=== PATIENT | female | born 1960 | race Caucasian/White ===

== ENCOUNTER 2022-04-21 10:31 | Outpatient (CLI) | payer BC, SELFPAY ==
[2022-04-21 17:38] LABS: Basophils Absolute Auto 0.1 K/mm3 (0.0-0.1); Basophils Percent Auto 0.9 % (0.2-1.2); Eosinophils Absolute Auto 0.1 K/mm3 (0-0.3); Eosinophils Percent Auto 0.7 % (0-4.4); Hematocrit 41.9 % (37.0-47.0); Hemoglobin 13.3 g/dL (12.0-15.0); Immature Granulocyte Absolute 0.01 K/mm3 (0.00-0.031); Immature Granulocyte Percent A 0.1 % (0-0.5); Lymphocytes Absolute Auto 1.49 K/mm3 (0.9-3.2); Lymphocytes Percent Auto 19.4 % (18.3-44.2); Mean Corpuscular HGB Conc 31.7 g/dl (32-36); Mean Corpuscular Hemoglobin 31.9 pg (26-34); Mean Corpuscular Volume 100.5 fl (80-100); Mean Platelet Volume 9.5 fl (7.4-10.4); Monocytes Absolute Auto 0.7 K/mm3 (0.1-0.6); Monocytes Percent Auto 8.5 % (2.6-8.5); Neutrophils Absolute Auto 5.4 K/mm3 (1.3-6.7); Neutrophils Percent Auto 70.4 % (45.5-73.1); Platelet Count Result 346 k/mm3 (150-375); Red Blood Count 4.17 M/mm3 (4.2-5.4); Red Cell Distribution Width 12.3 % (11.5-14.5); White Blood Count 7.7 K/mm3 (4.5-10.0)
[2022-04-21 19:03] LABS: Alanine Aminotransferase 31 U/L (6-35); Albumin Level 4.4 g/dL (3.5-5.1); Alkaline Phosphatase 80 U/L (38-126); Anion Gap 5 mmol/L (8-16); Aspartate Amino Transferase 43 U/L (14-36); Bilirubin,Total 0.4 mg/dL (0.2-1.3); Blood Urea Nitrogen 11 mg/dL (7-17); Calcium 8.7 mg/dL (8.4-10.2); Carbon Dioxide 31 mmol/L (22-30); Chloride 98 mmol/L (98-107); Cholesterol 227 mg/dL (0-200); Estimated Glomerular Filt Rate > 60; Glucose 86 mg/dL (65-110); HDL Direct 56 mg/dL; Potassium 4.5 mmol/L (3.4-5.0); Sodium 134 mmol/L (137-145); Triglycerides 105 mg/dL (<150)
[2022-04-21 19:14] LABS: LDL Cholesterol Direct 127 mg/dL
[2022-04-21 21:23] LABS: Hepatitis C Virus Antibody Negative (Negative)
== END 2022-04-21 10:32 | disposition home or self-care (01) ==
LOC: ANHGOSHLAB 10:34
PROVIDERS: PCP Family Medicine; Visit Provider Family Medicine
DX: Z12.11 Encounter for screening for malignant neoplasm of colon (principal); Z11.59 Encounter for screening for other viral diseases
CPT/HCPCS: 36415; 80053; 80061; 82607; 85025; 86803

== ENCOUNTER 2022-06-19 08:06 | Outpatient (CLI) | payer BC, SELFPAY ==
--- NOTE | ~2022-06-19 | MM_ITS ---
EXAMINATION: MM screening tasneem BI w nena HISTORY: Screening mammogram TECHNIQUE: Craniocaudal and mediolateral oblique 3-D tomosynthesis images were obtained and synthetic 2-D images were generated. CAD analysis was submitted and interpreted. COMPARISON: No prior mammogram is available for comparison at this institution. BREAST PARENCHYMAL COMPOSITION: There are scattered areas of fibroglandular density. FINDINGS: RIGHT BREAST: A mass is present in the posterior third of the central breast 8 cm from the nipple. LEFT BREAST: No suspicious mass, calcification, or architectural distortion are identified to suggest malignancy. IMPRESSION: 1. Right breast mass. 2. Additional mammographic views and possible breast ultrasound are recommended. BI-RADS Category 0: Incomplete: Needs additional imaging evaluation. Reviewed, dictated and finalized at location A. RD PRESS OPERATOR IMPRESSION: 1. Right breast mass. 2. Additional mammographic views and possible breast ultrasound are recommended . BI-RADS Category 0: Incomplete: Needs additional imaging evaluation.
== END 2022-06-19 08:07 | disposition home or self-care (01) ==
PROVIDERS: PCP Family Medicine; Visit Provider Family Medicine
DX: Z12.31 Encounter for screening mammogram for malignant neoplasm of breast (principal); R92.8 Other abnormal and inconclusive findings on diagnostic imaging of breast
CPT/HCPCS: 77063; 77067

== ENCOUNTER 2022-07-04 13:24 | Outpatient (CLI) | payer BC, SELFPAY ==
--- NOTE | ~2022-07-04 | MMUS_ITS ---
EXAMINATION: MM diagnostic tasneem RT w nena, US breast RT limited HISTORY: Follow-up right breast mass TECHNIQUE: Additional 3-D tomosynthesis images of the right breast were performed and synthetic 2-D i mages were generated. CAD analysis was submitted and interpreted. High resolution Limited right breas t ultrasound was performed. COMPARISON: 06/19/2022 BREAST PARENCHYMAL COMPOSITION: Breast composed of scattered areas of fibroglandular density FINDINGS: MAMMOGRAPHIC FINDINGS: There is a persistent mass in the upper central aspect of the right breast which is partially obscure d by fibroglandular tissue. No suspicious calcifications or architectural distortion. ULTRASOUND: Limited right breast ultrasound: At 12:00, 3 cm from the nipple, there is a 3 mm cyst which likely co rresponds to the mammographic finding. No suspicious masses to suggest malignancy. IMPRESSION: 1. Right breast cyst at 12:00, 3 cm from the nipple, likely corresponds to mammographic abnormality. 2. Recommend 6 month follow-up diagnostic right mammogram and ultrasound BI-RADS category 3, probably benign findings. Reviewed, dictated and finalized at location A. IMPRESSION: 1. Right breast cyst at 12:00, 3 cm from the nipple, likely corresponds to mamm ographic abnormality. 2. Recommend 6 month follow-up diagnostic right mammogram and ultrasound BI-RADS category 3, probably benign findings.
== END 2022-07-04 13:25 | disposition home or self-care (01) ==
PROVIDERS: PCP Family Medicine; Visit Provider Family Medicine
DX: R92.8 Other abnormal and inconclusive findings on diagnostic imaging of breast (principal)
CPT/HCPCS: 76642; 77061; 77065; G0279

== ENCOUNTER 2024-03-24 09:12 | Emergency (ER) | payer BC, SELFPAY ==
--- NOTE | 2024-03-24 09:30 | ED_ITS ---
HPI - Anxiety General Chief Complaint: Recheck/Abnormal Lab/Rx <Ruddy Santana PA-C - Last Filed: 03/24/24 17:20> Stated Complaint: med refill, anxiety attack <Ruddy Santana PA-C - Last Filed: 03/24/24 17:20> Time Seen by Provider: 03/24/24 09:13 <Ruddy Santana PA-C - Last Filed: 03/24/24 17:20> Source: patient <Ruddy Santana PA-C - Last Filed: 03/24/24 17:20> Mode of arrival: ambulatory <Ruddy Santana PA-C - Last Filed: 03/24/24 17:20> Limitations: no limitations <Ruddy Santana PA-C - Last Filed: 03/24/24 17:20> History of Present Illness HPI narrative: This is a 63-year-old female who presents to the ED for chief complaint of anxiety. Reports that she has been out of her Lexapro for the past 2 weeks due to changing insurances and being in between PCP. Patient reports that this medication is very helpful to her and controlling her anxiety. Lately she has been feeling very much out of control, anxious and worried. Denies SI, HI, other medical complaints. <Ruddy Santana PA-C - Last Filed: 03/24/24 17:20> Related Data Allergies/Adverse Reactions: Allergies Allergy/AdvReac Type Severity Reaction Status Date / Time No Known Allergies Allergy Verified 04/15/22 12:52 <Ruddy Santana PA-C - Last Filed: 03/24/24 17:20> Review of Systems Review of Systems: All systems as dictated in HPI <Ruddy Santana PA-C - Last Filed: 03/24/24 17:20> [facility] Past Medical History Medical History: Medical History (Updated 03/24/24 @ 09:37 by Ruddy Santana PA-C) Current cannabis vaping on some days Cholecystectomy planned <Ruddy Santana PA-C - Last Filed: 03/24/24 17:20> Family History Family History: Family History Other Acute myocardial infarction Family history of cardiovascular disease Hypertension <Ruddy Santana PA-C - Last Filed: 03/24/24 17:20> Social History Social History: Social History (Updated 04/15/22 @ 12:57 by Muna DE LEON, HALEY) Smoking packs per day: 1 Smoking cigarettes per day: 20.0 Years smoked: 32 Smoking pack-years: 32.00 Smoking status: Current every day smoker Tobacco type: cigarettes Alcohol intake: current Lack of Transportation: No Lack of Food: Never True Current Housing: I Have Housing Concerned About Future Housing: No Difficulty Paying Gas/Electric Bills: No Difficulty Paying for Meds: No Currently Unemployed: No Education: Decline to Answer Difficulty w/ Childcare or Family Care: No <Ruddy Santana PA-C - Last Filed: 03/24/24 17:20> Exam Narrative: GENERAL: Anxious appearing. Otherwise does not appear ill HEAD: Normocephalic, atraumatic. EYES: PERRLA and EOMI. ENT: Nares clear, no rhinorrhea or epistaxis. Mucous membranes moist. Oropha rynx without tonsillar hypertrophy exudate or other lesions. NECK: Supple. No adenopathy or masses. CHEST: No respiratory distress. Clear to auscultation. No wheezes rales or rhonchi HEART: Regular rate and rhythm. No murmur heard. Normal peripheral pulses. ABDOMEN: Soft, nontender, nondistended, normal active bowel sounds. MSK: Normal range of motion. No edema. SKIN: Warm, dry, no rash. NEURO: Alert and oriented x4. No focal deficits. PSYCH: Anxious mood. Tearful affect. No SI or HI. <Ruddy Santana PA-C - Last Filed: 03/24/24 17:20> Course COMPUTER ART INSTRUCTOR/PA Physician Supervision I agree with midlevel documentation; I performed the medical decision making component of this evaluation. <Marguerite Perez MD - Last Filed: 03/24/24 18:13> Vital Signs Vital signs: Vital Signs Temperature 97.9 F 03/24/24 09:40 Pulse Rate 70 03/24/24 09:40 Respiratory Rate 16 03/24/24 09:40 Blood Pressure 161/89 H 03/24/24 09:40 Pulse Oximetry 97 03/24/24 09:40 Oxygen Delivery Room Air 03/24/24 09:40 Temperature 97.9 F 03/24/24 09:40 Pulse Rate 70 03/24/24 09:40 Respiratory Rate 16 03/24/24 09:40 Blood Pressure 161/89 H 03/24/24 09:40 Pulse Oximetry 97 03/24/24 09:40 Oxygen Delivery Room Air 03/24/24 09:40 <Ruddy Santana PA-C - Last Filed: 03/24/24 17:20> Vital Signs Temperature 97.9 F 03/24/24 09:40 Pulse Rate 70 03/24/24 09:40 Respiratory Rate 16 03/24/24 09:40 Blood Pressure 161/89 H 03/24/24 09:40 Pulse Oximetry 97 03/24/24 09:40 Oxygen Delivery Room Air 03/24/24 09:40 Temperature 97.9 F 03/24/24 09:40 Pulse Rate 70 03/24/24 09:40 Respiratory Rate 16 03/24/24 09:40 Blood Pressure 161/89 H 03/24/24 09:40 Pulse Oximetry 97 03/24/24 09:40 Oxygen Delivery Room Air 03/24/24 09:40 <Marguerite Perez MD - Last Filed: 03/24/24 18:13> MDM - Anxiety MDM Narrative Medical decision making narrative: This is a 63-year-old female who presents to the ED for medication refill for anxiety. She takes Lexapro. No SI or HI.. Vitals show elevated blood pressure but otherwise normal. No need for further workup today. Patient was given a dose of her Lexapro today. Will start on a taper up from 20 to 40 mg over the next week. Rx for Lexapro given Patient will be discharged in stable condition. Supportive measures discussed and return precautions given. Patient is understanding and agreeable with plan for discharge with PCP follow-up. <Ruddy Santana PA-C - Last Filed: 03/24/24 17:20> Discharge Plan Discharge Clinical Impression: Anxiety <Ruddy Santana PA-C - Last Filed: 03/24/24 17:20> Patient Disposition: Home, Self-Care <Ruddy Santana PA-C - Last Filed: 03/24/24 17:20> Condition: Stable <Ruddy Santana PA-C - Last Filed: 03/24/24 17:20> Instructions: Antibiotic Form, Anxiety (ED) <Ruddy Santana PA-C - Last Filed: 03/24/24 17:20> Additional Instructions: If you have any new or worsening symptoms please return to the ER for further evaluation. <Ruddy Santana PA-C - Last Filed: 03/24/24 17:20> Patient Language: Yemeni <Ruddy Santana PA-C - Last Filed: 03/24/24 17:20> Prescriptions: New escitalopram oxalate [Lexapro] 20 mg tablet 40 mg PO DAILY 30 Days Qty: 60 0RF No Action mupirocin 2 % ointment 1 applic TOPICAL BID Qty: 22 0RF escitalopram oxalate 20 mg tablet 40 mg PO DAILY Qty: 60 0RF <Ruddy Santana PA-C - Last Filed: 03/24/24 17:20> Follow-up/Referrals: UNKNOWN,DOCTOR [Primary Care Provider] - <Ruddy Santana PA-C - Last Filed: 03/24/24 17:20> Time of Disposition: 09:38 <Ruddy Santana PA-C - Last Filed: 03/24/24 17:20> 09:38 <Marguerite Perez MD - Last Filed: 03/24/24 18:13>
[2024-03-24 09:40] VITALS: BP 161/89; PULSE 70; RESP 16; TEMP 36.6; O2SAT 97
[2024-03-24] MEDS: ESCITALOPRAM OXALATE 10 MG TABLET 40 MG PO (09:53)
== END 2024-03-24 10:05 | disposition home or self-care (01) ==
PROVIDERS: Emergency Provider Physician Assistant
DX: F41.9 Anxiety disorder, unspecified (principal); Z76.0 Encounter for issue of repeat prescription; F17.210 Nicotine dependence, cigarettes, uncomplicated
CPT/HCPCS: 99283; A9270

== ENCOUNTER 2024-04-21 14:05 | Emergency (ER) | payer BC, SELFPAY ==
[2024-04-21 14:25] VITALS: BP 121/81; PULSE 74; RESP 16; TEMP 36.1; O2SAT 95
--- NOTE | 2024-04-21 14:46 | ED.GENADULT ---
HPI - General Adult General Chief complaint: Unspecified Stated complaint: Needs to be seen for prescription Source: patient, RN notes reviewed and old records reviewed Mode of arrival: ambulatory Limitations: no limitations History of Present Illness HPI narrative: Patient presents without any complaints. Her primary care provider no longer accepts her insurance, she is in need of a refill on 1 of her medications Related Data Allergies Allergy/AdvReac Type Severity Reaction Status Date / Time No Known Allergies Allergy Verified 04/21/24 14:36 Review of Systems Review of Systems: All systems reviewed & are unremarkable except as noted in HPI and below Constitutional: Constitutional: Reports no additional constitutional complaints ENT: Reports system reviewed and no additional complaints, except as documented Cardiovascular: Cardiovascular: Reports no additional cardiovascular complaints Respiratory: Respiratory: Reports no additional respiratory complaints Gastrointestinal: Gastrointestinal: Reports no additional gastrointestinal complaints [facility] Past Medical History Medical History Current cannabis vaping on some days Cholecystectomy planned Family History Family History Other Acute myocardial infarction Family history of cardiovascular disease Hypertension Social History Social History Smoking packs per day: 1 Smoking cigarettes per day: 20.0 Years smoked: 32 Smoking pack-years: 32.00 Smoking status: Current every day smoker Tobacco type: cigarettes Alcohol intake: current Lack of Transportation: No Lack of Food: Never True Current Housing: I Have Housing Concerned About Future Housing: No Difficulty Paying Gas/Electric Bills: No Difficulty Paying for Meds: No Currently Unemployed: No Education: Decline to Answer Difficulty w/ Childcare or Family Care: No Comments At the time of my signature, I reviewed and agree with the nursing past medical, surgical, social, and family history. There is no relevant family history pertinent to the patient complaint. Exam Const: General: cooperative, no acute distress, alert and awake Orientation/consciousness: oriented to person, oriented to place and oriented to time HENMT: Head: normal to inspection Resp: Effort & Inspection: normal respiratory effort and able to speak in complete sentences Auscultation: clear to auscultation bilaterally, no crackles, no rales, no rhonchi and no wheezes Cardio: Palpation: normal PMI Rate: regular rate Rhythm: regular rhythm Heart sounds: S1 normal heart sound present and S2 normal heart sound present Neuro: General: oriented to person, oriented to place and oriented to time Cranial nerves: Yes CN's II-XII intact bilaterally Psych: Appearance: grossly normal Thought process: Normal thought process present Insight: Good insight present (Psych) Judgement: Good judgement present (Psych) Course Course Level of Care: Express Care Visit Vital Signs Vital signs: Vital Signs Temperature 97 F L 04/21/24 14:25 Pulse Rate 74 04/21/24 14:25 Respiratory Rate 16 04/21/24 14:25 Blood Pressure 121/81 04/21/24 14:25 Pulse Oximetry 95 04/21/24 14:25 Temperature 97 F L 04/21/24 14:25 Pulse Rate 74 04/21/24 14:25 Respiratory Rate 16 04/21/24 14:25 Blood Pressure 121/81 04/21/24 14:25 Pulse Oximetry 95 04/21/24 14:25 Reviewed Medical Decision Making MDM Narrative Medical decision making narrative: Discharge instructions reviewed with patient, as well as provided in writing per nursing staff. The instructions also include specific and strict return/GO TO THE ER as well as f/u information. All questions have been answered, and the patient deny any further questions with discharge and discharge plan. Some parts of this dictation were generated by voice recognition software and may contain typographical and/or grammatical inaccuracies. Vital Signs Vital Signs: Vital Signs Temperature 97 F L 04/21/24 14:25 Pulse Rate 74 04/21/24 14:25 Respiratory Rate 16 04/21/24 14:25 Blood Pressure 121/81 04/21/24 14:25 Pulse Oximetry 95 04/21/24 14:25 Temperature 97 F L 04/21/24 14:25 Pulse Rate 74 04/21/24 14:25 Respiratory Rate 16 04/21/24 14:25 Blood Pressure 121/81 04/21/24 14:25 Pulse Oximetry 95 04/21/24 14:25 reviewed Lab Data Lab results reviewed: Yes I reviewed the patient's lab results. Lab results narrative: reviewed Discharge Plan Discharge Clinical Impression: Anxiety Patient Disposition: Home, Self-Care Condition: Stable Instructions: Antibiotic Form, Anxiety (ED) Additional Instructions: take medications as prescribed. Follow with primary care provider. Emergency department for new or worse symptoms Patient Language: Divehi Prescriptions: New escitalopram oxalate 20 mg tablet 40 mg PO DAILY Qty: 60 0RF No Action escitalopram oxalate [Lexapro] 20 mg tablet 40 mg PO DAILY 30 Days Qty: 60 0RF escitalopram oxalate 20 mg tablet 40 mg PO DAILY Qty: 60 0RF Follow-up/Referrals: UNKNOWN,DOCTOR [Primary Care Provider] - Time of Disposition: 14:54
== END 2024-04-21 14:57 | disposition home or self-care (01) ==
PROVIDERS: Emergency Provider Nurse Practitioner Family
DX: F41.9 Anxiety disorder, unspecified (principal); F17.210 Nicotine dependence, cigarettes, uncomplicated; F12.90 Cannabis use, unspecified, uncomplicated
CPT/HCPCS: 99211; 99213; G0463

== ENCOUNTER 2024-08-27 13:21 | Emergency (ER) | payer SELFPAY ==
[2024-08-27 13:31] VITALS: BP 115/72; PULSE 82; RESP 16; TEMP 36.4; O2SAT 97
--- NOTE | 2024-08-27 13:51 | ED_ITS ---
HPI - General Adult General Chief complaint: Recheck/Abnormal Lab/Rx Stated complaint: WANTS A MED REFILL Time Seen by Provider: 08/27/24 13:51 Source: patient Mode of arrival: ambulatory Limitations: no limitations History of Present Illness HPI narrative: 64 y/o female with hx anxiety presented for medication refill of escitalopram. States she has not established with a new pcp since she got on Medicaid. Pt's l ast refill was 04/2024. Currently feels anxious and sad because her brother in law committed suicide recently. Denies SI/HI. Related Data Allergies Allergy/AdvReac Type Severity Reaction Status Date / Time No Known Allergies Allergy Verified 08/27/24 13:27 Review of Systems Review of Systems: CONSTITUTIONAL: Denies body aches, fever, chills, or sweats. CARDIOVASCULAR: Denies chest pain, palpitations, or edema. RESPIRATORY: Denies cough or dyspnea. SKIN: Denies rash, itching, or wounds. MUSCULOSKELETAL: Denies back pain, joint pain, or myalgia. NEUROLOGIC: Denies headache, numbness, tingling, or weakness. PSYCH: reports depression, anxiety. All systems reviewed & are unremarkable except as noted in HPI and below PMFSH Past Medical History Medical History Current cannabis vaping on some days Cholecystectomy planned Family History Family History Other Acute myocardial infarction Family history of cardiovascular disease Hypertension Social History Social History Smoking packs per day: 1 Smoking cigarettes per day: 20.0 Years smoked: 32 Smoking pack-years: 32.00 Smoking status: Current every day smoker Tobacco type: cigarettes Alcohol intake: current Lack of Transportation: No Lack of Food: Never True Current Housing: I Have Housing Concerned About Future Housing: No Difficulty Paying Gas/Electric Bills: No Difficulty Paying for Meds: No Currently Unemployed: No Education: Decline to Answer Difficulty w/ Childcare or Family Care: No Comments At time of signature, I have reviewed and agree with nursing past medical, surgical, social and family history unless otherwise noted. Please see nursing chart for further information. There is no relevant family history pertinent to the presenting complaint Exam Narrative: GENERAL: Well-appearing EYES: EOMI. No redness or drainage. Conjunctivae normal. ENT: Mucous membranes pink and moist. NECK: Normal AROM. CHEST: No respiratory distress. Clear to auscultation. HEART: Regular rate and rhythm. SKIN: Warm, dry, no rash. Capillary refill normal. Normal skin turgor. NEURO: No focal deficits. Alert and oriented x3. Gait steady. PSYCH: Tearful. Cooperative. Course Course Emergency Course: Patient is aware of diagnosis, understands and agrees to treatment plan. Anticipatory guidance given. Patient agrees to follow-up as directed and is aware of reasons to seek care at the emergency department. Portions of this record may have been created with voice recognition software Level of Care: Express Care Visit Vital Signs Vital signs: Vital Signs Temperature 97.6 F 08/27/24 13:31 Pulse Rate 82 08/27/24 13:31 Respiratory Rate 16 08/27/24 13:31 Blood Pressure 115/72 08/27/24 13:31 Pulse Oximetry 97 08/27/24 13:31 Temperature 97.6 F 08/27/24 13:31 Pulse Rate 82 08/27/24 13:31 Respiratory Rate 16 08/27/24 13:31 Blood Pressure 115/72 08/27/24 13:31 Pulse Oximetry 97 08/27/24 13:31 Medical Decision Making MDM Narrative Medical decision making narrative: Discussed physical exam findings; advised she must f/u with a pcp for additional refills and to take medication only as directed. Advised supportive measures and signs/symptoms to go to the ER. Pt is appropriate for outpt treatment and f/u. Differential Diagnosis Differential Diagnosis: anxiety, depression Vital Signs Vital Signs: Vital Signs Temperature 97.6 F 08/27/24 13:31 Pulse Rate 82 08/27/24 13:31 Respiratory Rate 16 08/27/24 13:31 Blood Pressure 115/72 08/27/24 13:31 Pulse Oximetry 97 08/27/24 13:31 Temperature 97.6 F 08/27/24 13:31 Pulse Rate 82 08/27/24 13:31 Respiratory Rate 16 08/27/24 13:31 Blood Pressure 115/72 08/27/24 13:31 Pulse Oximetry 97 08/27/24 13:31 reviewed Discharge Plan Discharge Clinical Impression: Encounter for medication refill Patient Disposition: Home Condition: Stable Instructions: Antibiotic Form Additional Instructions: You will be prescribed a refill for one week of your previously prescribed escitalopram. You must establish with a primary care provider for additional refills. Get plenty of Rest, eat healthy, and stay hydrated Recommend daily exercise, incorporate outdoor activities and fresh air Avoid smoking marijuana or drinking alcohol Limit caffeine or energy drinks Establish with a counselor/therapist Follow up with your primary care provider as scheduled Go to the ER for worsening symptoms or concerns Patient Language: Frisian Prescriptions: New escitalopram oxalate 20 mg tablet 20 mg PO DAILY 7 Days Qty: 7 0RF No Action escitalopram oxalate 20 mg tablet 40 mg PO DAILY Qty: 60 0RF Follow-up/Referrals: PHYSICIAN,RENAL MEDICINE SPECIALIST [Primary Care Provider] - Time of Disposition: 14:05
== END 2024-08-27 14:12 | disposition home or self-care (01) ==
PROVIDERS: Emergency Provider Nurse Practitioner Family
DX: Z76.0 Encounter for issue of repeat prescription (principal); F17.210 Nicotine dependence, cigarettes, uncomplicated
CPT/HCPCS: 99213; G0463

== ENCOUNTER 2024-09-04 11:13 | Emergency (ER) | payer SELFPAY ==
[2024-09-04 11:17] VITALS: BP 160/76; PULSE 73; RESP 16; TEMP 35.8
[2024-09-04 11:18] VITALS: O2SAT 98
[2024-09-04 11:20] VITALS: RESP 17; O2SAT 98
--- NOTE | 2024-09-04 12:20 | ED_ITS ---
HPI - General Adult General Chief complaint: Recheck/Abnormal Lab/Rx Stated complaint: needs Lexapro script Time Seen by Provider: 09/04/24 11:16 History of Present Illness HPI narrative: 64-year-old female presented to the emergency department for evaluation for persistent anxiety requesting a medication refill. Patient states she no longer has a primary care physician and patient states her [id number] recently committed suicide he was buried yesterday. Patient was evaluated on 08/27 and did get a refill for her Lexapro and patient has been attempting to get outpatient follow-up but has been unable to secure primary care physician. Patient states once again she is out of her medications. Patient denies any homicidal suicidal ideation. Patient declined to see a crisis counselor in the emergency department today. Patient is tearful during examination. Related Data Allergies Allergy/AdvReac Type Severity Reaction Status Date / Time No Known Allergies Allergy Verified 09/04/24 11:14 Review of Systems Review of Systems: All systems reviewed & are unremarkable except as noted in HPI and below PMFSH Past Medical History Medical History Current cannabis vaping on some days Cholecystectomy planned Family History Family History Other Acute myocardial infarction Family history of cardiovascular disease Hypertension Social History Social History Smoking packs per day: 1 Smoking cigarettes per day: 20.0 Years smoked: 32 Smoking pack-years: 32.00 Smoking status: Current every day smoker Tobacco type: cigarettes Alcohol intake: current Lack of Transportation: No Lack of Food: Never True Current Housing: I Have Housing Concerned About Future Housing: No Difficulty Paying Gas/Electric Bills: No Difficulty Paying for Meds: No Currently Unemployed: No Education: Decline to Answer Difficulty w/ Childcare or Family Care: No Exam Narrative: APPEARANCE: Well appearing, no pain, no distress, well-nourished. HEAD: normocephalic, atraumatic. EYES: PERRLA/EOMI, conjunctivae clear. NOSE: Normal no drainage EARS:TMS clear with good light reflex. THROAT: Pharynx clear, no exudate. NECK: Supple. No adenopathy, no masses. RESPIRATORY: Airway patent, respirations nonlabored. Clear to auscultation bilaterally, no rales, rhonchi, wheezing. CARDIOVASCULAR: Regular rate and rhythm without murmurs rubs or gallops. ABDOMINAL: Soft, nontender, nondistended, normal bowel sounds MUSCULOSKELETAL: Moves all extremities. Strength/ROM intact, No edema, No calf tenderness. NEURO: Alert. Cranial nerves II through XII intact. Good gait. Good coordination SKIN: Warm, dry. Normal Color PSYCHIATRIC tearful affect Course Vital Signs Vital signs: Vital Signs Temperature 96.5 F L 09/04/24 11:17 Pulse Rate 73 09/04/24 11:17 Respiratory Rate 16 09/04/24 11:17 Blood Pressure 160/76 H 09/04/24 11:17 Temperature 96.5 F L 09/04/24 11:17 Pulse Rate 73 09/04/24 11:17 Respiratory Rate 17 09/04/24 11:20 Blood Pressure 160/76 H 09/04/24 11:17 Pulse Oximetry 98 09/04/24 11:20 Oxygen Delivery Room Air 09/04/24 11:18 Medical Decision Making MDM Narrative Medical decision making narrative: 64-year-old female presents to the emergency department for evaluation for a medication refill. Patient is unsure of the exact dose her Lexapro. Patient states she takes 2 pills daily but is unsure of what strength she takes. Over the last 7 days patient has been taking 20 mg daily, patient states she is supposed to take 2 pills a day patient does have a previous prescription that was filled in April that still shows that she was taking 2 x 20 mg of Lexapro daily. Patient will be provided outpatient follow-up with the medical physician on-call. Patient will be provided additional 14 days of a medication refill to all our additional time to secure a primary care physician. Patient declined to see the crisis counselor. Differential Diagnosis Differential Diagnosis: Anxiety, homicidal ideation, suicidal ideation, medication refill Vital Signs Vital Signs: Vital Signs Temperature 96.5 F L 09/04/24 11:17 Pulse Rate 73 09/04/24 11:17 Respiratory Rate 16 09/04/24 11:17 Blood Pressure 160/76 H 09/04/24 11:17 Temperature 96.5 F L 09/04/24 11:17 Pulse Rate 73 09/04/24 11:17 Respiratory Rate 17 09/04/24 11:20 Blood Pressure 160/76 H 09/04/24 11:17 Pulse Oximetry 98 09/04/24 11:20 Oxygen Delivery Room Air 09/04/24 11:18 Discharge Plan Discharge Clinical Impression: Anxiety, Encounter for medication refill Patient Disposition: Home Condition: Stable Instructions: Antibiotic Form Additional Instructions: You are being provided an additional 14 days of your 40 mg daily Lexapro. Continue to seek follow-up with a primary care physician. If you have any worsening symptoms please call or return to the emergency department. Patient Language: Upper Sorbian Prescriptions: New escitalopram oxalate [Lexapro] 20 mg tablet 40 mg PO DAILY 14 Days Qty: 28 0RF Discontinued escitalopram oxalate 20 mg tablet 40 mg PO DAILY Qty: 60 0RF escitalopram oxalate 20 mg tablet 20 mg PO DAILY 7 Days Qty: 7 0RF Follow-up/Referrals: Pascual Ibarra DO [Physician] - PHYSICIAN,CONTRACT RUNNER [Primary Care Provider] -
== END 2024-09-04 12:36 | disposition home or self-care (01) ==
PROVIDERS: Emergency Provider Emergency Medicine
DX: F41.9 Anxiety disorder, unspecified (principal); Z76.0 Encounter for issue of repeat prescription
CPT/HCPCS: 99283

== ENCOUNTER 2024-10-13 12:31 | Emergency (ER) | payer OTHER, SELFPAY ==
[2024-10-13 12:40] VITALS: BP 125/85; PULSE 89; RESP 20; TEMP 36.2; O2SAT 97
--- NOTE | 2024-10-13 14:41 | ED.GENADULT ---
HPI - General Adult General Chief complaint: Unspecified Stated complaint: WANTS MEDICINE REFILL Time Seen by Provider: 10/13/24 13:03 Source: patient, RN notes reviewed and old records reviewed Mode of arrival: ambulatory Limitations: no limitations History of Present Illness HPI narrative: Patient presents today requesting a refill of her prescription for Lexapro. She takes 2-20 mg tablets once daily for her anxiety. She lost her Medicaid coverage at the end of last year and was no longer able to see her PCP with her new insurance. States she has been trying to find a new PCP but so far has been unable. 5 times since March 2024, patient has been seen in the ER at [facility] or at the [facility] for refills of her medication, last was at the end of August where she was given a 2 week prescription. Instead of taking as prescribed, she has been taking 1 pill every other day and ran out 3 days ago. States she has been a bit tearful but denies SI, HI, or any additional symptoms. States she has to wait until she turns 65 next June, when she can receive Medicare, to see her old PCP again. Related Data Allergies Allergy/AdvReac Type Severity Reaction Status Date / Time No Known Allergies Allergy Verified 09/04/24 11:14 [facility] Past Medical History Medical History Current cannabis vaping on some days Cholecystectomy planned Family History Family History Other Acute myocardial infarction Family history of cardiovascular disease Hypertension Social History Social History Smoking packs per day: 1 Smoking cigarettes per day: 20.0 Years smoked: 32 Smoking pack-years: 32.00 Smoking status: Current every day smoker Tobacco type: cigarettes Alcohol intake: current Lack of Transportation: No Lack of Food: Never True Current Housing: I Have Housing Concerned About Future Housing: No Difficulty Paying Gas/Electric Bills: No Difficulty Paying for Meds: No Currently Unemployed: No Education: Decline to Answer Difficulty w/ Childcare or Family Care: No Comments At time of signature, I have reviewed and agree with nursing past medical, surgical, social and family history unless otherwise noted. Please see nursing chart for further information. There is no relevant family history pertinent to the presenting complaint Exam Narrative: GENERAL: Well-appearing, well-nourished, and in no acute distress. HEAD: Normocephalic, atraumatic. EYES: EOMI. No redness or drainage. Conjunctivae normal. ENT: Mucous membranes pink and moist. NECK: Normal AROM. CHEST: No respiratory distress. Clear to auscultation. HEART: Regular rate and rhythm. No murmur appreciated. EXTREMITIES: Normal range of motion. No edema. SKIN: Warm, dry, no rash. Capillary refill normal. Normal skin turgor. NEURO: No focal deficits. Alert and oriented x3. Gait steady. PSYCH: Normal affect. No signs of depression or anxiety. Course Course Level of Care: Express Care Visit Vital Signs Vital signs: Vital Signs Temperature 97.2 F L 10/13/24 12:40 Pulse Rate 89 10/13/24 12:40 Respiratory Rate 20 10/13/24 12:40 Blood Pressure 125/85 10/13/24 12:40 Pulse Oximetry 97 10/13/24 12:40 Oxygen Delivery Room Air 10/13/24 12:40 Temperature 97.2 F L 10/13/24 12:40 Pulse Rate 89 10/13/24 12:40 Respiratory Rate 20 10/13/24 12:40 Blood Pressure 125/85 10/13/24 12:40 Pulse Oximetry 97 10/13/24 12:40 Oxygen Delivery Room Air 10/13/24 12:40 Reviewed Medical Decision Making MDM Narrative Medical decision making narrative: Patient is a 64-year-old female presents today with anxiety in request for refill of her Lexapro. Patient does not currently have a PCP and has not had 1 since late last year after losing her Medicaid. She has not been taking her Lexapro as prescribed, but spacing it out every other day. She has been visiting [facility] and emergency department for refills 5 times since March. She has been provided phone number for the physician liaison at [facility] to help her find a PCP that can continue her refills. I have spoken with [facility] greenhouse manager for the [place] to let patient know that we will no longer continue to provide her with these refills and urge her to make an appointment with a PCP to initiate continuing care. Patient verbalizes understanding of this plan. Prescription for 2 weeks of her medication has been sent to pharmacy. Vital signs stable. Differential Diagnosis Differential Diagnosis: anxiety, medication refill Vital Signs Vital Signs: Vital Signs Temperature 97.2 F L 10/13/24 12:40 Pulse Rate 89 10/13/24 12:40 Respiratory Rate 20 10/13/24 12:40 Blood Pressure 125/85 10/13/24 12:40 Pulse Oximetry 97 10/13/24 12:40 Oxygen Delivery Room Air 10/13/24 12:40 Temperature 97.2 F L 10/13/24 12:40 Pulse Rate 89 10/13/24 12:40 Respiratory Rate 20 10/13/24 12:40 Blood Pressure 125/85 10/13/24 12:40 Pulse Oximetry 97 10/13/24 12:40 Oxygen Delivery Room Air 10/13/24 12:40 Critical Care Time Critical Care Time Critical Care Time: No Discharge Plan Discharge Clinical Impression: Anxiety, Medication refill Patient Disposition: Home Condition: Stable Instructions: Anxiety (ED) Additional Instructions: As discussed, your escitalopram has been refilled for 2 weeks. Please take as prescribed. Please call the [facility] physician liaison phone number at [phone]. They can assist you in finding a PCP to continue your prescription. Your blood pressure was elevated above 120/80 today at Urgent Care. This puts you above the threshold for follow up. Please schedule a followup visit with your personal physician as soon as possible, for further evaluation and treatment. Even blood pressure exceeding 120/80 may indicate pre-hypertension. Patient Language: Greek Prescriptions: New escitalopram oxalate 20 mg tablet 40 mg PO DAILY 14 Days Qty: 28 0RF No Action escitalopram oxalate [Lexapro] 20 mg tablet 40 mg PO DAILY 14 Days Qty: 28 0RF Follow-up/Referrals: Lacy Branham MD [Primary Care Provider] - Time of Disposition: 13:09
== END 2024-10-13 13:11 | disposition home or self-care (01) ==
PROVIDERS: Emergency Provider Nurse Practitioner; PCP Family Medicine
DX: F41.9 Anxiety disorder, unspecified (principal); Z76.0 Encounter for issue of repeat prescription; F17.210 Nicotine dependence, cigarettes, uncomplicated
CPT/HCPCS: 99211; G0463

== ENCOUNTER 2024-11-10 14:38 | Emergency (ER) | payer OTHER, SELFPAY ==
[2024-11-10 14:39] VITALS: BP 121/70; PULSE 97; RESP 16; TEMP 36.8; O2SAT 97
--- NOTE | 2024-11-10 14:49 | ED_ITS ---
HPI - General Adult General Chief complaint: Unspecified Stated complaint: med refill Time Seen by Provider: 11/10/24 14:49 History of Present Illness HPI narrative: Patient is a 64-year-old female presents to the ER with request for medication refill. She reports she has been taking Escitalopram and is almost out. Patient reports she does not currently have a primary care provider. She is unsure who prescribed this medication initially. Patient denies any pain at the time of examination. She denies any other medical history relevant to this ER visit. Patient denies HI/SI at the time of examination. Related Data Allergies Allergy/AdvReac Type Severity Reaction Status Date / Time No Known Allergies Allergy Verified 11/10/24 14:41 Review of Systems Review of Systems: All systems reviewed & are unremarkable except as noted in HPI and below PMFSH Past Medical History Medical History Current cannabis vaping on some days Cholecystectomy planned Family History Family History Other Acute myocardial infarction Family history of cardiovascular disease Hypertension Social History Social History Smoking packs per day: 1 Smoking cigarettes per day: 20.0 Years smoked: 32 Smoking pack-years: 32.00 Smoking status: Current every day smoker Tobacco type: cigarettes Alcohol intake: current Lack of Transportation: No Lack of Food: Never True Current Housing: I Have Housing Concerned About Future Housing: No Difficulty Paying Gas/Electric Bills: No Difficulty Paying for Meds: No Currently Unemployed: No Education: Decline to Answer Difficulty w/ Childcare or Family Care: No Exam Narrative: GENERAL: Well appearing, well-nourished, non-toxic, in no acute distress. HEAD: Normocephalic, atraumatic. NECK: Supple. No adenopathy, no masses. RESPIRATORY: Airway patent, respirations nonlabored. Clear to auscultation bilaterally, no rales, rhonchi, wheezing. CARDIOVASCULAR: Regular rate and rhythm without murmurs, rubs, or gallops. Peripheral pulses 2+ and equal bilaterally. ABDOMINAL: Soft, nontender, nondistended, no hepatosplenomegaly. Normoactive BS. MUSCULOSKELETAL: Moves all extremities. Strength/ROM intact without gross deformities. SKIN: Warm, dry, normal color. No rashes. NEURO: A&O X3. Speech clear. Cranial nerves II-XII intact. No ataxic movements. PSYCHIATRIC: Appropriate mood and affect. Normal interaction. Course Vital Signs Vital signs: Vital Signs Temperature 36.8 C 11/10/24 14:39 Pulse Rate 97 11/10/24 14:39 Respiratory Rate 16 11/10/24 14:39 Blood Pressure 121/70 11/10/24 14:39 Pulse Oximetry 97 11/10/24 14:39 Oxygen Delivery Room Air 11/10/24 14:39 Temperature 36.8 C 11/10/24 14:39 Pulse Rate 97 11/10/24 14:39 Respiratory Rate 16 11/10/24 14:39 Blood Pressure 121/70 11/10/24 14:39 Pulse Oximetry 97 11/10/24 14:39 Oxygen Delivery Room Air 11/10/24 14:39 Medical Decision Making MDM Narrative Medical decision making narrative: Patient is a 64-year-old female presents to the ER with request for medication refill. She reports she has been taking Escitalopram and is almost out. Patient reports she does not currently have a primary care provider, although a primary care provider is listed on her chart. She is unsure who prescribed this medication initially. Patient denies any pain at the time of examination. She denies any other medical history relevant to this ER visit. Patient denies HI/SI at the time of examination. Patient Education/Shared MDM: Patient's medication will be refilled but she was strongly advised to establish care with a primary care provider. Strict return precautions provided. Patient verbalized understanding and is in agreement with plan. Vital signs stable at time of discharge. All questions answered. Differential Diagnosis Differential Diagnosis: Anxiety, depression, medication refill, suicidal ideation Vital Signs Vital Signs: Vital Signs Temperature 36.8 C 11/10/24 14:39 Pulse Rate 97 11/10/24 14:39 Respiratory Rate 16 11/10/24 14:39 Blood Pressure 121/70 11/10/24 14:39 Pulse Oximetry 97 11/10/24 14:39 Oxygen Delivery Room Air 11/10/24 14:39 Temperature 36.8 C 11/10/24 14:39 Pulse Rate 97 11/10/24 14:39 Respiratory Rate 16 11/10/24 14:39 Blood Pressure 121/70 11/10/24 14:39 Pulse Oximetry 97 11/10/24 14:39 Oxygen Delivery Room Air 11/10/24 14:39 Discharge Plan Discharge Clinical Impression: Anxiety, Depression Patient Disposition: Home Condition: Stable Instructions: Antibiotic Form, Depression (ED), Anxiety (ED) Additional Instructions: Please return to the ER with any worsening symptoms. Follow-up with primary care provider, Dr. Branham, as soon as possible. Take all medications as prescribed, including regularly scheduled medications. Patient Language: Slovak Prescriptions: New escitalopram oxalate 20 mg tablet 20 mg PO BID Qty: 60 0RF No Action escitalopram oxalate 20 mg tablet 40 mg PO DAILY 14 Days Qty: 28 0RF escitalopram oxalate [Lexapro] 20 mg tablet 40 mg PO DAILY 14 Days Qty: 28 0RF Follow-up/Referrals: Lacy Branham MD [Primary Care Provider] - Time of Disposition: 14:54
== END 2024-11-10 15:19 | disposition home or self-care (01) ==
LOC: ANHED 14:58
PROVIDERS: Emergency Provider Registered Nurse; PCP Family Medicine
DX: F41.9 Anxiety disorder, unspecified (principal); F32.A Depression, unspecified; Z76.0 Encounter for issue of repeat prescription; F17.210 Nicotine dependence, cigarettes, uncomplicated
CPT/HCPCS: 99283